=== PATIENT | female | born 1960 | race Caucasian/White ===

== ENCOUNTER → 2019-07-31 | Outpatient (CLI) | payer MEDICARE ==
--- NOTE | 2019-08-04 15:28 | HOLTMON ---
[facility] Test Date: 2019-07-31 Pat Name: CHRISTINE SANCHEZ Department: Room: - Gender: Female Tax Processor: IBETH APONTE : 1960 Requested By: HODAN QUINONEZ Order Number: [id number] Reading MD: Jose A Downing Interpretive Statements Patient had a 24 hour holter monitor for palpiations with minimal artifact. Underlying rhythm was sinus. Rate varied from 55-124 beats per minute. There were no significant pauses. There were 13 ectopic ventricular beats and 70 ectopic supraventricular beats. There were many diary events, none listed as palpitations. Some activities were associated with sinus tachycardia. This holter monitor recording does not show an etiology for palpitations. If further study is indicated- please pursue an event or loop recorder. Electronically Signed on 08-04-2019 15:28:11 EST by Jose A Downing
== END ==
LOC: M EKG 12:40
PROVIDERS: ATTEND Neuromusculoskeletal Medicine & OMM
DX: R00.2 Palpitations (principal)

== ENCOUNTER → 2021-12-11 | Outpatient (CLI) | payer MEDICARE | LOC: M WHC 12:12 | PROVIDERS: ATTEND Physician Assistant | DX: Z12.31 Encounter for screening mammogram for malignant neoplasm of breast (principal); Z80.3 Family history of malignant neoplasm of breast ==